=== PATIENT | female | born 1975 | race Caucasian/White ===

== ENCOUNTER 2022-12-08 11:07 | Emergency (ER) | payer OTHER, SELFPAY ==
[2022-12-08 11:24] VITALS: BP 132/74; PULSE 76; RESP 16; TEMP 37.2; O2SAT 99
--- NOTE | 2022-12-08 12:29 | ED.NAVMDI ---
HPI - Nausea/Vomiting/Diarrhea General Chief complaint: Nausea/Vomiting/Diarrhea Stated complaint: Nausea/Diarrhea Time Seen by Provider: 12/08/22 12:15 Source: patient, RN notes reviewed and old records reviewed Mode of arrival: ambulatory Limitations: no limitations History of Present Illness HPI Narrative: 47 year old female who present to express care with complaint of nausea diarrhea cramping upper abdomen since yesterday and has felt feverish. Patient here today requesting work note and Cellow OVID test also. Patient has not had COVID vaccinations or any flu shot. Patient reports that she has not had any vomiting but continues to have some nausea and also some liquid brown stools, denies any abdominal pain today.Patient denies any blood noted in stools or green yellow grainy stools. MD elicited complaint: nausea, diarrhea and other (felt feverish and has had some upper abdomen cramping.) Onset (ago): day(s) (day 2 of symptoms) Description of diarrhea: watery Associated abdominal pain: Yes Pain scale (0-10): 5 Treatment prior to arrival: none Related Data Home Medications Medication Instructions Recorded Confirmed multivit with minerals-iron 18 1 tablet PO DAILY 12/08/22 12/08/22 mg-folic ac 400 mcg-vit K 25 mcg tablet (Adults Multivitamin) Allergies Allergy/AdvReac Type Severity Reaction Status Date / Time iodine Allergy Unknown Verified 12/08/22 12:19 Review of Systems Review of Systems: CONSTITUTIONAL: Reports has felt feverish, chills, or sweats. ENT: Denies rhinorrhea, congestion, sore throat, or otalgia. CARDIOVASCULAR: Denies chest pain, palpitations, or edema. RESPIRATORY: Denies cough or dyspnea. GASTROINTESTINAL: Reports crampy abdominal pain, nausea,no vomiting, diarrhea x4 GENITOURINARY: Denies dysuria or hematuria. SKIN: Denies rash or itching. MUSCULOSKELETAL: Denies back pain, joint pain, or myalgia. NEUROLOGIC: Denies headache, numbness, or weakness. All systems reviewed & are unremarkable except as noted in HPI and below PMFSH Past Medical History Medical History (Updated 12/10/22 @ 09:53 by Eusebia Inman NP) Anemia Social History Social History (Updated 12/10/22 @ 09:54 by Eusebia Inman NP) Smoking status: Former smoker Additional smoking assessment comments: quit 20 years ago Alcohol intake: unknown Substance use type: does not use Gender identity (if verbalized by the patient): Female Comments At time of signature, agree with nursing past medical, surgical, social and family history. There is no relevant family history pertinent to the presenting complaint Exam Narrative: GENERAL: Well-appearing, well-nourished, and in no acute distress. HEAD: Normocephalic, atraumatic. EYES: PERRLA, conjunctivae clear, and EOMI. ENT: Nares clear. Mucous membranes moist. Oropharynx without edema, erythema, or lesions. Tonsils not enlarged and without exudate. NECK: Supple. No lymphadenopathy CHEST: Speaks in full sentences. No respiratory distress. HEART: Regular rate and rhythm. ABDOMEN: Soft, flat, nondistended. No guarding, rebound tenderness, or rigid. No pulsatilla masses. Bowel sounds present in all four quadrants. No organomegaly. Negative Ho?s sign.No McBurney point tenderness, No periumbilical tenderness. No Supra public tenderness or distension. Good femoral pulses bilaterally. No hernia noted. No scars or surface, states no trauma,reports some crampy abdominal discomfort intermittent. SKIN: Warm, dry, no rash. NEURO:? Alert and oriented x3. PSYCH: Normal mood and affect Course Course Emergency Course: Patient is aware of diagnosis, understands and agrees to treatment plan.? Anticipatory guidance given.? Patient agrees to follow-up as directed and is aware of reasons to seek care at the emergency department. Portions of this record may have been created with voice recognition software Level of Care: Express Care Visit Vital Signs Vital sig
== END 2022-12-08 12:40 | disposition home or self-care (01) ==
PROVIDERS: Emergency Provider Registered Nurse; PCP Family Medicine
DX: K52.9 Noninfective gastroenteritis and colitis, unspecified (principal); Z87.891 Personal history of nicotine dependence; Z20.822 Contact with and (suspected) exposure to COVID-19
CPT/HCPCS: 87426; 99213; C9803; G0463